=== PATIENT | male | born 1955 | race Two or more races ===

== ENCOUNTER 2023-02-25 21:16 | Emergency (ER) | payer OTHER ==
[~2023-02-25] VITALS: Ht 170.2 cm; Wt 84.4 kg
[2023-02-25] MEDS ORDERED: SYNTHROID300 MCG (21:34)
[2023-02-25] MEDS ORDERED: XANAX0.25 MG (21:34)
[2023-02-25] MEDS ORDERED: XANAX XR0.5 MG (21:34)
[2023-02-25] MEDS ORDERED: SYNTHROID50 MCG (21:40)
[2023-02-25 22:17] LABS: HEMATOCRIT 42.6 % (39.0-48.0); HEMOGLOBIN 14.4 g/dL (13-16.00); MEAN CELL VOLUME 91.3 fL (80.0-100.00); MEAN CORPUSCULAR HEMOGLOBIN 30.9 pg (27.00-32.0); MEAN CORPUSCULAR HGB CONC 33.8 g/dl (32.0-36.0); PLATELET COUNT 148 K/uL (150-450); RED BLOOD COUNT 4.66 M/uL (4.00-6.00)
[2023-02-25 22:35] LABS: CALCIUM 9.3 mg/dL (8.5-10.1); CREATININE SERUM 1.26 mg/dL (0.70-1.30); GFR 57.44; POTASSIUM 4.12 mEq/L (3.5-5.1)
[2023-02-26 03:28] LABS: ALT/SGPT 26 U/L (12-78); AST/SGOT 16 U/L (15-37)
[2023-02-26 03:47] LABS: PARTIAL THROMBOPLASTIN TIME 28.2 SECONDS (22.0-34.0)
[2023-02-26] MEDS ORDERED: COZAAR50 MG PO (05:15)
== END 2023-02-26 05:23 ==
LOC: EDBD 21:17 → ER 21:17
PROVIDERS: General Practice
DX: I10 Essential (primary) hypertension (principal)
CPT/HCPCS: 36415; 96365; 96366; 99282; J3490

== ENCOUNTER 2023-09-17 04:14 | Emergency (ER) | payer OTHER ==
[~2023-09-17] VITALS: Ht 170.2 cm; Wt 83.9 kg
[~2023-09-17 04:14] MED LIST: COZAAR50 MG PO; SYNTHROID300 MCG; SYNTHROID50 MCG; XANAX XR0.5 MG; XANAX0.25 MG
[2023-09-17 05:08] LABS: HEMATOCRIT 44.3 % (39.0-48.0); HEMOGLOBIN 15.2 g/dL (13-16.00); MEAN CELL VOLUME 92.4 fL (80.0-100.00); MEAN CORPUSCULAR HEMOGLOBIN 31.8 pg (27.00-32.0); MEAN CORPUSCULAR HGB CONC 34.4 g/dl (32.0-36.0); PLATELET COUNT 183 K/uL (150-450); RED BLOOD COUNT 4.79 M/uL (4.00-6.00); RED CELL DISTRIBUTION WIDTH 12.4 % (11.5-14.5)
[2023-09-17] MEDS ORDERED: hydrOXYzine PAMOATE 50 MG CAPSULE PO STA (05:41)
[2023-09-17 05:45] LABS: ALBUMIN 4.2 gm/dL (3.4-5.0); BILIRUBIN TOTAL 0.8 mg/dL (0.3-1.2); CALCIUM 8.9 mg/dL (8.5-10.1); CREATININE SERUM 1.38 mg/dL (0.70-1.30); GFR 51.55; GLOBULINA 3.4 G/DL (2.4-3.5); TOTAL PROTEIN 7.6 gm/dL (6.4-8.2)
[2023-09-17 05:53] LABS: POTASSIUM 4.31 mEq/L (3.5-5.1)
[2023-09-17] MEDS ORDERED: LOSARTAN POTASSIUM 50 MG TABLET PO SCH (09:00)
== END 2023-09-17 09:23 | disposition home or self-care (01) ==
LOC: ER
PROVIDERS: General Practice
DX: R00.2 Palpitations (principal); I10 Essential (primary) hypertension; R07.89 Other chest pain; Z88.0 Allergy status to penicillin